=== PATIENT | female | born 1930 | race Caucasian/White ===

== ENCOUNTER → 2019-03-13 | Outpatient (CLI) | payer MEDICARE | LOC: ZCOL.LAB 16:15 | DX: S71.102D Unspecified open wound, left thigh, subsequent encounter (principal) ==

== ENCOUNTER 2019-03-26 10:44 | Outpatient (CLI) | payer MEDICARE, OTHER ==
[~2019-03-26] VITALS: Ht 160 cm; Wt 52.3 kg
[2019-03-26 12:40] VITALS: BP 150/109; PULSE 77
[2019-03-26 13:00] LABS: HEMATOCRIT 38.9 % (37.0-47.0); HEMOGLOBIN 12.5 g/dl (12.5-16.0); MEAN CELL VOLUME 98 fl (80.0-100.0); MEAN CORPUSCULAR HEMOGLOBIN 31 pg (27.0-31.0); MEAN CORPUSCULAR HGB CONC 32 g/dl (33.0-37.0); MEAN PLATELET VOLUME 11.6 fl (7.4-10.4); PLATELET COUNT 129 K/mm3 (130-400); RED BLOOD COUNT 3.98 M/mm3 (4.10-5.30); REDCELL DISTRIBUTION WIDTH-CV 14.6 % (11.5-14.5)
[2019-03-26 13:13] LABS: ALBUMIN 4.1 gm/dL (3.5-5.0); BILIRUBIN,TOTAL 0.4 mg/dL (0.0-1.0); C-REACTIVE PROTEIN 0.8 mg/dL (0.0-0.9); CREATININE, serum 0.46 (0.52-1.25); POTASSIUM 3.9 mmol/L (3.4-5.0); TOTAL PROTEIN 7.9 gm/dL (6.4-8.2)
[2019-03-26 13:26] LABS: ERYTHROCYTE SEDIMENTATION RATE 14 mm/hr (0-30)
--- NOTE | 2019-03-26 13:42 | NUR ---
Per pt she will go to [facility] for further antibiotics.
[2019-03-26] MEDS ORDERED: SYNTHROID0.1 MG/TAB PO (13:45)
[2019-03-26] MEDS ORDERED: LOPRESSOR 225 MG/TAB PO (13:46)
[2019-03-26] MEDS ORDERED: MASON NATURAL2000 IU PO (13:47)
[2019-03-26] MEDS ORDERED: CALCIUM CARBON650 M2 PO (13:47)
[2019-03-26] MEDS ORDERED: OCUVITE1 TA1 PO (13:52)
[2019-03-26] MEDS ORDERED: MAXIPIME2 GM IJ (13:53)
[2019-03-26] MEDS ORDERED: LASIX 20MG TABL20 MG PO (13:53)
[2019-03-26] MEDS ORDERED: CITRACAL + D CA1 TAB PO (13:53)
== END 2019-03-26 14:25 | disposition home or self-care (01) ==
LOC: EUO 10:44
PROVIDERS: Nurse Practitioner
DX: Z45.2 Encounter for adjustment and management of vascular access device (principal); B95.8 Unspecified staphylococcus as the cause of diseases classified elsewhere; T14.8XXA Other injury of unspecified body region, initial encounter
CPT/HCPCS: C1751; J0692

== ENCOUNTER 2019-05-25 14:20 | Outpatient (CLI) | payer MEDICARE, OTHER ==
[~2019-05-25] VITALS: Ht 160 cm; Wt 52.0 kg
[~2019-05-25 14:20] MED LIST: CALCIUM CARBON650 M2 PO; CITRACAL + D CA1 TAB PO; LASIX 20MG TABL20 MG PO; LOPRESSOR 225 MG/TAB PO; MASON NATURAL2000 IU PO; MAXIPIME2 GM IJ; OCUVITE1 TA1 PO; SYNTHROID0.1 MG/TAB PO
[2019-05-25 15:23] VITALS: PULSE 71; TEMP 97.7
--- NOTE | 2019-05-25 16:45 | NUR ---
PT has been resting comfortably, talking with friend since PICC removal, pt has had no bleeding or other sx develop at PICC insertion/removal site. cms intact to extremity. Reviewed written instructions r/t PICC removal and return precautions. pt denied any questions, and opted to ambulate to exit with friend.
== END 2019-05-25 16:45 | disposition home or self-care (01) ==
LOC: EUO 14:20
DX: T81.49XA Infection following a procedure, other surgical site, initial encounter (principal); A49.01 Methicillin susceptible Staphylococcus aureus infection, unspecified site

== ENCOUNTER → 2019-06-03 | Outpatient (CLI) | payer MEDICARE, OTHER | LOC: ZCOL.LAB 14:27 | DX: T81.31XA Disruption of external operation (surgical) wound, not elsewhere classified, initial encounter (principal); Z98.890 Other specified postprocedural states ==